=== PATIENT | female | born 1990 | race African-American/Black ===

== ENCOUNTER 2017-04-26 15:20 | Observation (INO) | payer MEDICAID ==
[~2017-04-26 15:20] MED LIST: NITR-48 PO; ONDA-133 PO; RANI-185 PO
[2017-04-26] MEDS ORDERED: PREN-96 PO (17:09)
== END 2017-04-26 16:55 | disposition home or self-care (01) | DRG 566 ==
LOC: LDRP 15:20
PROVIDERS: ADMIT Obstetrics & Gynecology; ATTEND Obstetrics & Gynecology
DX: O62.9 Abnormality of forces of labor, unspecified (principal); O26.893 Other specified pregnancy related conditions, third trimester; R10.2 Pelvic and perineal pain; N89.8 Other specified noninflammatory disorders of vagina; M54.9 Dorsalgia, unspecified; R51 Headache; V89.2XXA Person injured in unspecified motor-vehicle accident, traffic, initial encounter; Y93.89 Activity, other specified; Y92.410 Unspecified street and highway as the place of occurrence of the external cause; Y99.8 Other external cause status; Z3A.36 36 weeks gestation of pregnancy
CPT/HCPCS: 59025; 76815; 81002; G0378

== ENCOUNTER 2021-07-22 00:07 | Emergency (ER) | payer MEDICAID ==
[~2021-07-22] VITALS: Ht 172.7 cm; Wt 102.1 kg
[~2021-07-22 00:07] MED LIST changes: -NITR-48 PO; -ONDA-133 PO; +PREN-96 PO; -RANI-185 PO
[2021-07-22 01:04] VITALS: BP 138/99
[2021-07-22] MEDS ORDERED: cefTRIAXone SOD 1,000 MG VL IM ONE (01:15)
[2021-07-22] MEDS ORDERED: IBUP800T26 PO (01:23)
[2021-07-22] MEDS ORDERED: AMOX-277 PO (01:23)
== END 2021-07-22 01:50 | disposition home or self-care (01) ==
LOC: ER 00:07
DX: J32.8 Other chronic sinusitis (principal); F12.10 Cannabis abuse, uncomplicated
CPT/HCPCS: 96372; 99283; J0696